=== PATIENT | male | born 2000 | race American Indian/Alaskan Native ===

== ENCOUNTER 2020-02-22 21:03 | Emergency (ER) | payer SELFPAY ==
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
[2020-02-23 01:37] VITALS: BP 122/77
== END 2020-02-23 03:30 | disposition home or self-care (01) ==
LOC: ED 21:03
DX: S09.90XA Unspecified injury of head, initial encounter (principal); Z79.899 Other long term (current) drug therapy; V49.59XA Passenger injured in collision with other motor vehicles in traffic accident, initial encounter; Y92.410 Unspecified street and highway as the place of occurrence of the external cause; Y93.89 Activity, other specified; Y99.8 Other external cause status
CPT/HCPCS: 70450